=== PATIENT | female | born 1950 | race Caucasian/White ===

== ENCOUNTER 2019-04-30 13:07 | Emergency (ER) | payer MEDICARE, BC ==
--- NOTE | 2019-04-30 13:12 | UC ---
Skin Complaint HPI - History of Current Complaint Time Seen by Provider: 04/30/19 13:08 Stated Complaint: TICK BITE - Allergy/Home Medications Allergies/Adverse Reactions: Allergies Allergy/AdvReac Type Severity Reaction Status Date / Time Iodinated Contrast- Oral and Allergy Anaphylatic Verified 04/30/19 13:26 IV Dye Shock iodine Allergy Anaphylatic Verified 04/30/19 13:26 Shock MS Shellfish Allergy Allergy GI Upset Verified 04/30/19 13:26 [Shellfish Allergy] PMH/Surg Hx/FS Hx/Imm Hx - Additional Past Medical History Additional PMH: Past Medical History : None Past Surgical History: No Past History of Procedure Family History : non contributory Social History : Occasional alcohol, non smoker, no drug use. Lives with family . Previously Healthy: Yes - Surgical History Surgical History: Yes Surgery Procedure, Year, and Place: Hysterectomy, Abdominal surgery x3 for endometriosis ,1998, and again in 2010 for kinked small intestines. Other Surgical History: HYSTERECTOMY. ABD SURGERY FOR ENDOMETRIOSIS. MELANOMA IN SITU. NONSMOKER; [employer]; FAM HX NONE - Social History Alcohol Use: Occasionally Substance Use Type: None Smoking Status (MU): Never Smoked Tobacco Physical Exam - Summary Physical Exam Summary: Vital Signs Reviewed: Yes A+Ox3, no distress Eyes: Conjunctiva Clear ENT: Hearing grossly normal neck: supple Respiratory: Positive: No respiratory distress, No accessory muscle use Cardiovascular: skin color reflect adequate perfusion Musculoskeletal Exam: POP x 4 without difficulty Neurological: Positive: Alert, ambulatory without difficulty Psychological: Positive: Normal Response To Family Skin: Positive: no rash, no ecchymosis Course/Dx - Course Course Of Treatment: During the visit today, we obtained . We discussed the findings and further plan. I will prescribe the medication to the pharmacy . Patient expressed understanding . Discharge - Discharge Plan Patient Education Materials: Lyme Disease (ED), Tick Bite (ED) Referrals: Judy Valenzuela MD [Primary Care Provider] - If Needed Additional Instructions: Please start taking the medication as prescribed to the pharmacy . Follow up with your primary care doctor in 2 days. Patients blood pressure slightly high in Urgent care today , plan follow up with PCP for better control Return to Urgent care / ER if symptoms get worse.
[2019-04-30 13:25] VITALS: BP 113/65
--- NOTE | 2019-04-30 13:46 | UC ---
Skin Complaint HPI - HPI Summary HPI Summary: Found tick last night and removed herself at L elbow. attached for<24hrs, not engorged. - History of Current Complaint Chief Complaint: UCSkin Time Seen by Provider: 04/30/19 13:08 Stated Complaint: TICK BITE Hx Obtained From: Patient Onset/Duration: Sudden Onset Pain Intensity: 0 Pain Scale Used: 0-10 Numeric Location: Discrete Aggravating Factor(s): Nothing Alleviating Factor(s): Nothing - Allergy/Home Medications Allergies/Adverse Reactions: Allergies Allergy/AdvReac Type Severity Reaction Status Date / Time Iodinated Contrast- Oral and Allergy Anaphylatic Verified 04/30/19 13:26 IV Dye Shock iodine Allergy Anaphylatic Verified 04/30/19 13:26 Shock MS Shellfish Allergy Allergy GI Upset Verified 04/30/19 13:26 [Shellfish Allergy] Home Medications: Home Medications Clobetasol 0.05% OINT* 04/30/19 [History] Dovonex 04/30/19 [History] PMH/Surg Hx/FS Hx/Imm Hx - Additional Past Medical History Additional PMH: no chronic conditions Previously Healthy: Yes - Surgical History Surgical History: Yes Surgery Procedure, Year, and Place: Hysterectomy, Abdominal surgery x3 for endometriosis ,1998, and again in 2010 for kinked small intestines. Other Surgical History: HYSTERECTOMY. ABD SURGERY FOR ENDOMETRIOSIS. MELANOMA IN SITU. NONSMOKER; [place] [employer]; FAM HX NONE - Family History Known Family History: Positive: Non-Contributory - Social History Alcohol Use: Rare Substance Use Type: None Smoking Status (MU): Never Smoked Tobacco Review of Systems All Other Systems Reviewed And Are Negative: Yes Constitutional: Positive: Negative Skin: Negative: Rash Musculoskeletal: Negative: Arthralgia, Edema Physical Exam Triage Information Reviewed: Yes Appearance: Well-Appearing Vital Signs: Initial Vital Signs Temp 99.2 F 04/30/19 13:19 Pulse 75 04/30/19 13:19 Resp 14 04/30/19 13:19 BP 113/65 04/30/19 13:19 Pulse Ox 99 04/30/19 13:19 Vital Signs Reviewed: Yes Respiratory Exam: Normal Cardiovascular Exam: Normal Skin: Positive: Other - small pinpoint irritated area. Negative: Rashes Course/Dx - Course Course Of Treatment: L elbow irritation after a non engorged tick was found last night embedded. - Differential Diagnoses - Skin Complaint Differential Diagnoses: Tick Born Illness, Other - Diagnoses Provider Diagnosis: Tick bite Discharge - Sign-Out/Discharge Documenting (check all that apply): Patient Departure All imaging exams completed and their final reports reviewed: No Studies - Discharge Plan Condition: Good Disposition: HOME Prescriptions: DOXYcycline CAP(*) [DOXYcycline 100MG CAP(*)] 100 mg PO BID 1 Days #2 cap Patient Education Materials: Lyme Disease (ED), Tick Bite (ED) Referrals: Judy Valenzuela MD [Primary Care Provider] - If Needed Additional Instructions: Please start taking the medication as prescribed to the pharmacy . Follow up with your primary care doctor in 2 days. Patients blood pressure slightly high in Urgent care today , plan follow up with PCP for better control Return to Urgent care / ER if symptoms get worse. - Billing Disposition and Condition Condition: GOOD Disposition: Home
== END 2019-04-30 14:00 | disposition home or self-care (01) ==
LOC: UCEAST 13:07
DX: T63.481A Toxic effect of venom of other arthropod, accidental (unintentional), initial encounter (principal); Y92.9 Unspecified place or not applicable
CPT/HCPCS: 99202; G0463